=== PATIENT | male | born 1995 | race Hispanic/Latino ===

== ENCOUNTER 2022-02-07 15:25 | Emergency (ER) | payer OTHER, SELFPAY ==
[2022-02-07] MEDS ORDERED: Mag-Al Plus 1200 MG/1200 MG/120 MG/30 ML UDCUP ONE (16:09)
== END 2022-02-07 16:42 | disposition home or self-care (01) ==
LOC: CSHERS 15:25
DX: R07.9 Chest pain, unspecified (principal)
CPT/HCPCS: 71045; 93005